=== PATIENT | female | born 1935 | race Caucasian/White ===

== ENCOUNTER 2024-04-03 04:53 | Inpatient (IN) | payer MEDICARE ==
[~2024-04-03] VITALS: Ht 167.6 cm; Wt 104.3 kg
[2024-04-03] VITALS (7 sets, daily range): BP systolic 144–158; BP diastolic 79–100; PULSE 72–89; RESP 14–21; TEMP 98.4–98.9; O2SAT 96–97
[~2024-04-03 04:53] MED LIST: COSAMIN; GABAPENTIN100 MG; METFORMIN HCL500 MG PO; VICODIN ES 7.51 EACH PO
[2024-04-03] MEDS ORDERED: ONDANSETRON HCL INJ 2MG/ML 2ML 2 MG/ML VIAL ONE (05:45)
[2024-04-03] MEDS ORDERED: FENTANYL CITRATE/PF 100MCG/2 ML INJ ONE (05:45)
[2024-04-03] MEDS: FENTANYL CITRATE/PF 100MCG/2 ML INJ IJ ONE (07:19)
[2024-04-03 07:56] LABS: BASOPHILS % 0.3 % (0.0-1.0); EOSINOPHILS % 0.1 % (0.0-6.0); HEMATOCRIT 43.3 % (34.2-44.1); HEMOGLOBIN 13.4 g/dL (12.0-16.0); LYMPHOCYTES # (AUTO) 1.2 (1.0-3.2); LYMPHOCYTES % 9.1 % (18.0-39.1); MEAN CORPUSCULAR HEMOGLOBIN 27.4 pg (28-32); MEAN CORPUSCULAR HGB CONC 30.9 g/dL (31-35); MEAN CORPUSCULAR VOLUME 88.5 fL (81-99); MONOCYTES % 7.1 % (4.4-11.3); NEUTROPHILS # (AUTO) 11.2 (2.1-6.9); NEUTROPHILS % 82.8 % (38.7-80.0); PLATELET COUNT 239 x10e3/uL (140-360); RED BLOOD COUNT 4.89 x10e6/uL (3.6-5.1); RED CELL DISTRIBUTION WIDTH 14.5 % (11.7-14.4); WHITE BLOOD COUNT 13.48 x10e3/uL (4.8-10.8)
[2024-04-03 08:19] LABS: ALANINE AMINOTRANSFERASE 14 IU/L (0-55); ALBUMIN 3.4 g/dL (3.5-5.0); ALBUMIN/GLOBULIN RATIO 0.8 (0.8-2.0); ALKALINE PHOSPHATASE 66 IU/L (40-150); ANION GAP 13.8 mmol/L (8-16); BILIRUBIN,TOTAL 0.7 mg/dL (0.2-1.2); BLOOD UREA NITROGEN 15 mg/dL (7-26); BUN/CREATININE RATIO 18 (6-25); CALCIUM 9.4 mg/dL (8.4-10.2); CARBON DIOXIDE 23 mmol/L (22-29); CHLORIDE 103 mmol/L (98-107); CREATININE, SERUM 0.85 mg/dL (0.57-1.11); EST GLOMERULAR FILTRATION RATE 66 ML/MIN (>=60); GLUCOSE 220 mg/dL (74-118); POTASSIUM 3.8 mmol/L (3.5-5.1); SODIUM 136 mmol/L (136-145); TOTAL PROTEIN 7.8 g/dL (6.5-8.1)
[2024-04-03 08:29] LABS: TROPONIN I < 0.001 ng/mL (0-0.300)
[2024-04-03 11:53] LABS: BILIRUBIN,URINE NEGATIVE (NEGATIVE); CLARITY,URINE CLEAR (CLEAR); COLOR,URINE YELLOW (YELLOW); GLUCOSE, URINE 1+ (NEGATIVE); KETONES,URINE 1+ (NEGATIVE); LEUKOCYTE ESTERASE ,URINE NEGATIVE (NEGATIVE); NITRITE,URINE NEGATIVE (NEGATIVE); PH,URINE 7.5 (5 - 7); PROTEIN,URINE DIPSTICK NEGATIVE (NEGATIVE); URINE UROBILINOGEN 0.2 mg/dL (0.2 - 1)
[2024-04-03 12:24] LABS: BACTERIA,URINE RARE /HPF; EPITHELIAL CELLS,URINE RARE /LPF; WBC,URINE (MAN) 0-5 /HPF (0-5)
[2024-04-03] MEDS ORDERED: ONDANSETRON HCL INJ 2MG/ML 2ML 2 MG/ML VIAL IV PRN (13:15)
[2024-04-03] MEDS ORDERED: SODIUM CHLORIDE FLUSH 10 ML SYR INJ PRN (13:15)
[2024-04-03] MEDS ORDERED: ALBUTEROL SULF 0.083% NEB SOLN 3 ML NEB NEB PRN (17:00)
[2024-04-03] MEDS ORDERED: DOCUSATE SODIUM 100 MG CAP PO PRN (17:00)
[2024-04-03] MEDS ORDERED: HYDRALAZINE HCL 20 MG/ML VIAL IV PRN (17:00)
[2024-04-03] MEDS ORDERED: ACETAMINOPHEN 325 MG TAB PO PRN (17:00)
[2024-04-03] MEDS ORDERED: DEXTROSE 50% SYRINGE 50 ML IV PRN (17:00)
[2024-04-03] MEDS ORDERED: MAGNESIUM/ALUMINUM/SIMETHICONE 30 ML UDC PO PRN (17:00)
[2024-04-03] MEDS: INSULIN REGULAR, HUMAN 100 UNIT/1 ML SQ SCH (20:24)
[2024-04-03] MEDS ORDERED: MELATONIN 3 MG TAB PO PRN (21:00)
[2024-04-03] MEDS ORDERED: KETOROLAC TROMETHAMINE 30 MG/ML VIAL IV PRN (22:30)
[2024-04-04] VITALS (10 sets, daily range): BP systolic 117–171; BP diastolic 71–92; PULSE 83–98; RESP 18–22; TEMP 96.4–99.7; O2SAT 95–99
[2024-04-04] MEDS: KETOROLAC TROMETHAMINE 30 MG/ML VIAL IV PRN (05:02)
[2024-04-04 05:14] LABS: BASOPHILS % 0.3 % (0.0-1.0); EOSINOPHILS # (AUTO) 0.1 (0.0-0.4); EOSINOPHILS % 0.4 % (0.0-6.0); HEMATOCRIT 41.4 % (34.2-44.1); HEMOGLOBIN 12.9 g/dL (12.0-16.0); LYMPHOCYTES # (AUTO) 1.6 (1.0-3.2); MEAN CORPUSCULAR HEMOGLOBIN 27.4 pg (28-32); MEAN CORPUSCULAR HGB CONC 31.2 g/dL (31-35); MEAN CORPUSCULAR VOLUME 88.1 fL (81-99); MONOCYTES # (AUTO) 1.4 (0.2-0.8); MONOCYTES % 11.6 % (4.4-11.3); NEUTROPHILS # (AUTO) 9.1 (2.1-6.9); NEUTROPHILS % 73.9 % (38.7-80.0); PLATELET COUNT 234 x10e3/uL (140-360); RED CELL DISTRIBUTION WIDTH 14.5 % (11.7-14.4); WHITE BLOOD COUNT 12.37 x10e3/uL (4.8-10.8)
[2024-04-04 05:50] LABS: ALBUMIN 2.8 g/dL (3.5-5.0); ALBUMIN/GLOBULIN RATIO 0.7 (0.8-2.0); ANION GAP 14.5 mmol/L (8-16); BILIRUBIN,TOTAL 1.1 mg/dL (0.2-1.2); CREATININE, SERUM 0.83 mg/dL (0.57-1.11); POTASSIUM 3.5 mmol/L (3.5-5.1); TOTAL PROTEIN 7.1 g/dL (6.5-8.1)
[2024-04-04] MEDS: MULTIVITAMINS/MINERALS TAB PO SCH (08:27)
[2024-04-05] VITALS (9 sets, daily range): BP systolic 118–147; BP diastolic 57–90; PULSE 73–96; RESP 17–22; TEMP 98.1–99; O2SAT 96–100
[2024-04-05] MEDS: GUAIFENESIN/DEXTROMETHORPHAN LIQD 5 ML UDC PO PRN (08:26)
[2024-04-05] MEDS ORDERED: GADOBENATE DIMEGLUMINE 1 ML IV ONE (12:33)
[2024-04-05] MEDS: DEXAMETHASONE PHOS 4MG/ML 5ML MULTIDOSE VIAL IV ONE ×2 (20:15→20:45)
[2024-04-06] VITALS (7 sets, daily range): BP systolic 106–138; BP diastolic 57–74; PULSE 74–93; RESP 18–20; TEMP 97.8–98.4; O2SAT 93–100
[2024-04-06] MEDS: DEXAMETHASONE SOD PHOS INJ 4 MG/ML SDV ONE (01:29)
[2024-04-06] MEDS ORDERED: KETOROLAC TROMETHAMINE 30 MG/ML VIAL IV PRN (05:30)
[2024-04-06] MEDS: ENOXAPARIN SOD INJ 40 MG/0.4 ML SYR SC SCH (09:43)
[2024-04-06] MEDS: HYDROCODONE/APAP 7.5MG-325MG 1 EA TAB PO PRN (09:44)
== END 2024-04-06 18:24 | disposition short-term general hospital (02) | DRG 551 ==
LOC: ER 05:18 → ERHOLD 13:04 → IMCU 15:37 → OBSVTOIN 04-04 19:23
PROVIDERS: ADMIT Internal Medicine Critical Care Medicine; ATTEND Internal Medicine Critical Care Medicine
DX: M48.02 Spinal stenosis, cervical region (principal); G93.41 Metabolic encephalopathy; M50.123 Cervical disc disorder at C6-C7 level with radiculopathy; C50.911 Malignant neoplasm of unspecified site of right female breast; E11.9 Type 2 diabetes mellitus without complications; E66.9 Obesity, unspecified; Z68.37 Body mass index [BMI] 37.0-37.9, adult; D72.829 Elevated white blood cell count, unspecified; Z79.84 Long term (current) use of oral hypoglycemic drugs; Z98.1 Arthrodesis status; Z86.73 Personal history of transient ischemic attack (TIA), and cerebral infarction without residual deficits; Z91.041 Radiographic dye allergy status; Z88.8 Allergy status to other drugs, medicaments and biological substances; Z88.6 Allergy status to analgesic agent
CPT/HCPCS: 36415; 70450; 70553; 71045; 72125; 72156; 80053; 81001; 82948; 84484; 85025; 93005; 93971; 94799; 95819; 96372; 99252; 99284; G0378; J1100; J1650; J1885; J2405